=== PATIENT | male | born 1975 | race Caucasian/White ===

== ENCOUNTER 2022-04-24 17:21 | Observation (INO) | payer BC, SELFPAY ==
[2022-04-24] VITALS (9 sets, daily range): BP systolic 137–240; BP diastolic 68–149; PULSE 74–104; RESP 10–22; TEMP 36.7; O2SAT 90–95; BMI 40.7
--- NOTE | 2022-04-24 18:19 | XRR_ITS ---
PROCEDURE INFORMATION: Exam: XR Chest Exam date and time: 04/24/2022 6:27 PM Age: 47 years old Clinical indication: Other: HTN TECHNIQUE: Imaging protocol: Radiologic exam of the chest. Views: 1 view. COMPARISON: No relevant prior studies available. FINDINGS: Lungs: Unremarkable. No consolidation. Pleural spaces: Unremarkable. No pleural effusion. No pneumothorax. Heart/Mediastinum: Unremarkable. No cardiomegaly. Bones/joints: Unremarkable. XR/XR chest 1V portable [id number] IMPRESSION: No acute findings.
--- NOTE | 2022-04-24 18:22 | ECG_ITS ---
[facility] Test Date: 2022-04-24 Pat Name: Natanael Boswell Department: Room: Gender: Male Care Transition Coordinator: : 1975 Requested By: Shamir Hough Order Number: [id number] Sixto MD: Kwasi Palomo M.D. Measurements Intervals [place] Rate: 94 P: 60 ID: [id number] QRS: 20 QRSD: 99 T: 103 QT: 358 QTc: 449 Interpretive Statements SINUS RHYTHM POSSIBLE LEFT ATRIAL ENLARGEMENT [-0.1mV P-WAVE IN V1/V2] NONSPECIFIC ST & T-WAVE ABNORMALITY No previous ECG available for comparison Electronically Signed On 04-26-2022 7:44:06 PILLOW CLEANER by Kwasi Palomo M.D. [id number]
[2022-04-24 18:30] LABS: Basophils # 0.1 10^3/uL (0.0-0.1); Basophils % 0.5 %; Eosinophils # 0.1 10^3/uL (0.0-0.8); Eosinophils % 1.1 %; Hematocrit 52.4 % (42.0-52.0); Hemoglobin 17.7 g/dL (11.7-16.6); Lymphocytes # 1.9 10^3/uL (0.8-4.8); Lymphocytes % 17.9 %; Mean Corpuscular HGB Conc 33.8 g/dL (30.0-36.0); Mean Corpuscular Hemoglobin 29.8 pg (28.0-34.0); Mean Corpuscular Volume 88.2 fl (80-94); Mean Platelet Volume 12.1 fL (7.4-10.4); Monocytes # 0.8 10^3/uL (0.2-0.9); Monocytes % 7.4 %; Neutrophils # 7.69 10^3/uL (1.8-7.7); Neutrophils % 72.8 %; Nucleated Red Blood Cells % 0 %; Platelet Count 279 10^3/cmm (130-400); Red Blood Count 5.94 10^6/uL (4.1-5.3); Red Cell Distribution Width 12.2 % (12.1-15.1); White Blood Count 10.6 10^3/uL (4.0-10.0)
[2022-04-24] MEDS: amlodipine 10 mg Tablet PO (18:35)
[2022-04-24] MEDS: nitroglycerin 1 gm/inch oint Pkt 2 INCH TOPICAL (18:35)
[2022-04-24] MEDS: labetalol 5 mg/mL SDV 20mL 20 MG IVP ×2 (18:35→19:55)
[2022-04-24] MEDS: enalaprilat 1.25 mg/mL Inj IVP (18:35)
[2022-04-24 18:51] LABS: Troponin(5th) Baseline 10 ng/L (0-15)
[2022-04-24 19:01] LABS: Alanine Aminotransferase 46 U/L (0-41); Albumin Level 4.9 g/dL (3.5-5.2); Alkaline Phosphatase 76 U/L (40-130); Anion Gap 19.6 (5-19); Aspartate Amino Transferase 27 U/L (0-40); Blood Urea Nitrogen 16 mg/dL (6-20); Calcium 9.8 mg/dL (8.5-10.5); Carbon Dioxide 24 mmol/L (22-29); Chloride 98 mmol/L (98-107); Globulin 3.1 g/dL (1.3-4.6); Glomerular Filtration Rate 79.4 mL/min (90-130); Glucose 106 mg/dL (65-115); Magnesium 2.1 mg/dL (1.7-2.3); NT Pro B Type Natriuretic Pept 41 pg/mL (0-125); Osmolality Calculated 288 mOsm/kg (285-295); Potassium 3.6 mmol/L (3.5-5.1); Sodium 138 mmol/L (136-145); Thyroid Stimulating Hormone 4.05 uIU/mL (0.27-4.20); Total Bilirubin 0.6 mg/dL (0.15-1.2)
--- NOTE | 2022-04-24 19:12 | CTR_ITS ---
PROCEDURE INFORMATION: Exam: CT Head Without Contrast Exam date and time: 04/24/2022 7:17 PM Age: 47 years old Clinical indication: Numbness / parasthesia and other: HTN; Right; Additional info: Paresthesia right, HTN TECHNIQUE: Imaging protocol: Computed tomography of the head without contrast. Radiation optimization: All CT scans at this facility use at least one of these dose optimization techniques: automated exposure control; mA and/or kV adjustment per patient size (includes targeted exams where dose is matched to clinical indication); or iterative reconstruction. COMPARISON: No relevant prior studies available. RADIATION DOSE METRICS: Total DLP (mGy-cm): 1219.88 FINDINGS: Brain: Normal. No hemorrhage. Unremarkable white matter. No mass effect. Cerebral ventricles: No ventriculomegaly. Paranasal sinuses: Visualized sinuses are unremarkable. No fluid levels. Mastoid air cells: Visualized mastoid air cells are well aerated. Bones/joints: Unremarkable. No acute fracture. Soft tissues: Unremarkable. CT/CT head wo con* [id number] IMPRESSION: No acute intracranial abnormality.
[2022-04-24 20:42] LABS: Troponin 5 2HR 10.74 ng/L (0-15)
--- NOTE | 2022-04-24 20:46 | ED_ITS ---
HPI - General Adult General: Chief complaint: ER Hold Stated complaint: high bp, numbness on left side Time Seen by Provider: 04/24/22 18:10 Source: patient and family History of Present Illness: 47-year-old male without history of significant medical problems. He presents with some paresthesias to his left upper and lower extremity for the past couple of weeks. He has been on and off he denies headache. He has had some upper back discomfort but no chest discomfort. He felt like my blood pressure was high earlier today, and it was significantly e levated. He presents with a blood pressure in the 230 systolic range. Onset (ago): day(s) Location: back Radiation: non-radiation Severity: moderate Quality: other Associated symptoms: Deny chest pain, confusion, cough, dyspnea, fevers/chills, headache(s), nausea, rash, palpitations, short of breath or vomiting Review of Systems ENMT: Denies: throat pain Card: Denies: chest pain or palpitations Resp: Denies: dyspnea GI: Denies: nausea or vomiting Skin/Breast: Denies: rash Neuro: Denies: headache(s) or confusion PFSH ED PFSH: Medical History (Updated 04/26/22 @ 00:00 by BELLE Dior) No pertinent past medical history Surgical History (Updated 04/24/22 @ 22:30 by Jay Mondragon MD) No pertinent past surgical history Family History (Updated 04/24/22 @ 22:31 by Jay Mondragon MD) Father CAD (coronary artery disease) Hypertension Social History (Updated 04/24/22 @ 22:31 by Jay Mondragon MD) Smoking and tobacco status: never smoked Alcohol intake: current Alcohol intake frequency: holidays/special occasions only Physical Exam Const: COMMON NORMALS: alert GENERAL APPEARANCE: cooperative; not frail appearing NUTRITIONAL APPEARANCE: obese HENMT: COMMON NORMALS: normocephalic, atraumatic and Normal external nose present HEAD & SCALP: normocephalic and atraumatic FACE & SINUS: normal facial exam and face symmetric NOSE: Normal external nose present Eye: COMMON NORMALS: Equal, round and reactive pupils present and EOMs intact bilaterally PUPIL: Yes Equal, round and reactive pupils present Neck/C-Spine: GENERAL: Yes trachea midline Chest: CHEST: Yes Symmetrical chest wall rise Resp: COMMON NORMALS: normal respiratory effort, No use of accessory muscles and clear to auscultation bilaterally AUSCULTATION: clear to auscultation bilaterally Cardio: COMMON NORMALS: regular rate and regular rhythm RATE: regular rate RHYTHM: regular rhythm GI: COMMON NORMALS: Normal to inspection, nondistended, normoactive bowel sounds present and Soft to palpation PALPATION: Yes Soft to palpation Extremity: GENERAL: Yes edema (1+) Neuro: PENNY COMA SCALE: document GCS findings [place] coma scale eye opening: Spontaneous [place] coma scale verbal response: Orientated [place] coma scale motor response: Obey commands [place] coma scale total score: 15 SENSORIUM/ORIENTATION: Yes alert CRANIAL NERVES: Yes CN normal except as noted COORDINATION/BALANCE: [id number] test normal SPEECH: speech normal SENSORY EXAM: Yes extremities MOTOR EXAM: 5/5 motor strength present throughout and Pronator motor function not present COORDINATION: [id number] test normal Psych: COMMON NORMALS: mental status grossly normal and cooperative Skin: COMMON NORMALS: no rashes or lesions noted GENERAL SKIN EXAM: no rashes or lesions noted Course Vital Signs: Vital signs: Vital Signs Temperature 98.1 F 04/24/22 17:32 Pulse Rate 85 04/25/22 05:00 Respiratory Rate 15 04/25/22 05:00 Blood Pressure 134/76 04/25/22 08:59 Pulse Oximetry 96 04/25/22 04:30 Oxygen Delivery Me thod 04/24/22 20:59 [facility] - General Adult Medical Decision Making 47-year-old male with significant hypertension. Initially, he was given 20 mg of IV labetalol, 2 inches of nitroglycerin paste, 10 mg of amlodipine, and 1.25 mg of Vasotec IV his blood pressure currently is still 194/114, that is despite another 20 mg dose of IV labetalol. Decision was made at that point to start nicardipine drip IV. He will go to the [facility]. His hemoglobin is 17.7 with a white blood cell count of 10.6. BMP is not remarkable his first troponin is 10. TSH is 4. Chest x-ray and CT are negative. Creatinine is 1. Hospitalist has seen the patient in the ER. Lab Data 04/24/22 18:00 04/24/22 18:00 Radiology Impressions Chest X-Ray 04/24/22 18:19 IMPRESSION: No acute findings. Head CT 04/24/22 19:12 IMPRESSION: No acute intracranial abnormality. Laboratory Results WBC 10.6 10^3/uL (4.0-10.0) H 04/24/22 18:00 RBC 5.94 10^6/uL (4.1-5.3) H 04/24/22 18:00 Hgb 17.7 g/dL (11.7-16.6) H 04/24/22 18:00 Hct 52.4 % (42.0-52.0) H 04/24/22 18:00 MCV 88.2 fl (80-94) 04/24/22 18:00 MCH 29.8 pg (28.0-34.0) 04/24/22 18:00 MCHC 33.8 g/dL (30.0-36.0) 04/24/22 18:00 RDW 12.2 % (12.1-15.1) 04/24/22 18:00 Plt Count 279 10^3/cmm (130-400) 04/24/22 18:00 MPV 12.1 fL (7.4-10.4) H 04/24/22 18:00 Neut % (Auto) 72.8 % 04/24/22 18:00 Lymph % (Auto) 17.9 % 04/24/22 18:00 Ness % (Auto) 7.4 % 04/24/22 18:00 Eos % (Auto) 1.1 % 04/24/22 18:00 Baso % (Auto) 0.5 % 04/24/22 18:00 Neut # (Auto) 7.69 10^3/uL (1.8-7.7) 04/24/22 18:00 Lymph # (Auto) 1.9 10^3/uL (0.8-4.8) 04/24/22 18:00 Ness # (Auto) 0.8 10^3/uL (0.2-0.9) 04/24/22 18:00 Eos # (Auto) 0.1 10^3/uL (0.0-0.8) 04/24/22 18:00 Baso # (Auto) 0.1 10^3/uL (0.0-0.1) 04/24/22 18:00 Nucleated RBC % (auto) 0 % 04/24/22 18:00 Nucleated RBCs # 0.0 /100WBC 04/24/22 18:00 Sodium 138 mmol/L (136-145) 04/24/22 18:00 Potassium 3.6 mmol/L (3.5-5.1) 04/24/22 18:00 Chloride 98 mmol/L (98-107) 04/24/22 18:00 Carbon Dioxide 24 mmol/L (22-29) 04/24/22 18:00 Anion Gap 19.6 (5-19) H 04/24/22 18:00 BUN 16 mg/dL (6-20) 04/24/22 18:00 Creatinine 1.0 mg/dL (0.7-1.2) 04/24/22 18:00 GFR Calculation 79.4 mL/min (90-130) L 04/24/22 18:00 Glucose 106 mg/dL (65-115) 04/24/22 18:00 Estimat Average Glucose 114 04/24/22 18:00 Hemoglobin A1c 5.6 % (4.0-6.0) 04/24/22 18:00 Calculated Osmolality 288 mOsm/kg (285-295) 04/24/22 18:00 Calcium 9.8 mg/dL (8.5-10.5) 04/24/22 18:00 Magnesium 2.1 mg/dL (1.7-2.3) 04/24/22 19:43 Total Bilirubin 0.6 mg/dL (0.15-1.2) 04/24/22 18:00 AST 27 U/L (0-40) 04/24/22 18:00 ALT 46 U/L (0-41) H 04/24/22 18:00 Alkaline Phosphatase 76 U/L (40-130) 04/24/22 18:00 Troponin T Baseline 10 ng/L (0-15) 04/24/22 18:00 Troponin T 120 Minute 10.74 ng/L (0-15) 04/24/22 19:43 Delta Troponin T 0.74 ABS# (0-10) 04/24/22 19:43 NT-Pro-B Natriuret Pep 40 pg/mL (0-125) 04/24/22 19:43 Total Protein 8.0 g/dL (6.6-8.7) 04/24/22 18:00 Albumin 4.9 g/dL (3.5-5.2) 04/24/22 18:00 Globulin 3.1 g/dL (1.3-4.6) 04/24/22 18:00 Triglycerides 123 mg/dL (0-150) 04/24/22 19:43 Cholesterol 160 mg/dL (0-200) 04/24/22 19:43 LDL Cholesterol, Calc 102 mg/dL (50-129) 04/24/22 19:43 HDL Cholesterol 33 mg/dL (60-100) L 04/24/22 19:43 LDL/HDL Ratio 3.09 RATIO (0.00-3.22) 04/24/22 19: Cholesterol/HDL Ratio 4.85 mg/dL (1.0-5.00) 04/24/22 19:43 TSH 4.05 uIU/mL (0.27-4.20) 04/24/22 18:00 Urine Color Yellow (Yellow) 04/24/22 21:33 Urine Appearance Clear (CLEAR) 04/24/22 21:33 Urine pH 5 (5-7) 04/24/22 21:33 Ur Specific [place] 1.015 (1.005-1.030) 04/24/22 21:33 Urine Protein Neg (Negative) 04/24/22 21:33 Urine Glucose (UA) Norm (Normal) 04/24/22 21:33 Urine Ketones 2+ (Negative) H 04/24/22 21:33 Urine Blood Neg (Negative) 04/24/22 21:33 Urine Nitrate Negative (Negative) 04/24/22 21:33 Urine Bilirubin Neg (Negative) 04/24/22 21:33 Urine Urobilinogen Neg mg/dL (Negative) 04/24/22 21:33 Ur Leukocyte Esterase Negative (Negative) 04/24/22 21:33 Critical Care Time Critical Care Time: Critical Care Time: Yes Total Critical Care Time: 40 Attestation: This case had a high probability of a clinically significant, sudden, or life threatening deterioration of this patient's condition which required my full and direct attention, intervention and personal management. Time is independent of any procedures performed Discharge Plan Discharge Patient Disposition: Admitted As Inpatient Admit Provider: Jay Mondragon Clinical Impression: Hypertensive crisis Condition: Stable Discharge Diet: Cardiac Discharge Activity: Increase activity as tolerated Coding Level of Care Code ED Nascar Driver for Chg Fwd Exam Comprehensive
--- NOTE | 2022-04-24 20:55 | ECG_ITS ---
[facility] Test Date: 2022-04-24 Pat Name: Natanael Boswell Department: Room: Gender: Male Last Chalker: : 1975 Requested By: Shamir Hough Order Number: [id number] Sixto MD: Kwasi Palomo M.D. Measurements Intervals [place] Rate: 79 P: 54 SC: 169 QRS: 20 QRSD: 99 T: 133 QT: 382 QTc: 439 Interpretive Statements SINUS RHYTHM SEPTAL MYOCARDIAL INFARCTION , OF INDETERMINATE AGE [40+ ms Q WAVE IN V1/V2] Compared to ECG 04/24/2022 18:38:52 Myocardial infarct finding now present T-wave abnormality no longer present Electronically Signed On 04-26-2022 7:49:51 TIRE SERVICER by Kwasi Palomo M.D. [id number]
[2022-04-24 21:09] LABS: Troponin 5 2HR Delta 0.74 ABS# (0-10)
[2022-04-24] MEDS: nicardipine 20 MG/200 ML PREMIX 5 MG IV (21:28)
[2022-04-24 21:40] LABS: Add Urine Microscopic? NO; Charge for UA Resulting for Rev
[2022-04-24 21:54] LABS: Bilirubin Urine Neg (Negative); Blood Urine Neg (Negative); Glucose Urine UA Norm (Normal); Ketones Urine 2+ (Negative); Leukocyte Esterase Urine Negative (Negative); Nitrate Urine Negative (Negative); Protein Urine Neg (Negative); Specific Gravity, Urine 1.015 (1.005-1.030); Urine Appearance Clear (CLEAR); Urine Color Yellow (Yellow); Urobilinogen Urine Neg (Negative); pH Urine 5 (5-7)
--- NOTE | 2022-04-24 22:28 | PM.HP ---
Providers/Chief Complaint Chief Complaint: high bp, numbness on left side History of Present Illness Natanael Boswell is a 47 year old male with no significant past medical history, who presents [facility] for elevated blood pressure. Patient tells me that recently he has been having numbness and tingling of bilateral hands and feet, when he was at his chiropractor, he had his blood pressure check it was like in the 120s over 90s, since then he continued to have intermittent numbness and tingling of his hands feet, he tells that 1 time he was typing, when he had difficulty coordinating with his hands, no facial droop, no slurring of his words, no blurry vision, no focal weakness. So that he has been watching his blood pressure closely, tonight when he checked his blood pressure his systolic blood pressure was over 200, no chest pain, palpitations, lightheadedness, dizziness, no nausea, no vomiting, no shortness of breath here in the emergency room his blood pressures were as high as systolic greater than 240s, diastolic in the 140 she was given multiple IV blood pressure medications however his blood pressure still was not controlled so he was placed on a Cardene drip Review of Systems Const: Denies: fever(s), chills, fatigue or malaise Eyes: Denies: change in vision or blurry vision ENMT: Denies: epistaxis Card: Denies: chest pain or palpitations Resp: Denies: dyspnea, productive cough, non-productive cough or wheezing GI: Denies: abdominal pain, nausea, vomiting, hematemesis, diarrhea, hematochezia or melena : Denies: flank pain, difficulty urinating, dysuria or urinary frequency Musc: Denies: neck pain or back pain Skin/Breast: Denies: rash Neuro: Denies: headache(s), dizziness or vertigo Psych: Denies: anxiety Endo: Denies: polyuria or polydipsia Medications/Allergies Home Medications Medication Instructions Recorded Confirmed Last Taken Type No Known Home Medications 04/24/22 04/24/22 Unknown History Allergies Allergy/AdvReac Type Severity Reaction Status Date / Time Penicillins Allergy Unknown Unknown Verified 04/24/22 18:10 PFSH Acute PFSH: Medical History (Updated 04/24/22 @ 22:32 by Jay Mondragon MD) No pertinent past medical history Surgical History (Updated 04/24/22 @ 22:30 by Jay Mondragon MD) No pertinent past surgical history Family History (Updated 04/24/22 @ 22:31 by Jay Mondragon MD) Father CAD (coronary artery disease) Hypertension Social History (Updated 04/24/22 @ 22:31 by Jay Mondragon MD) Smoking and tobacco status: never smoked Alcohol intake: current Alcohol intake frequency: holidays/special occasions only Substance/Drug Use: never Vitals/I&O/Wt Last Vital Signs Temp 98.1 F 04/24/22 17:32 Pulse 85 04/24/22 22:00 Resp 18 04/24/22 22:00 BP 149/83 04/24/22 22:00 Pulse Ox 95 04/24/22 22:00 O2 Del Method 04/24/22 17:32 Weight last 48 hrs Weight 121.563 kg Physical Exam Const: COMMON NORMALS: no acute distress and patient oriented x3 HENMT: COMMON NORMALS: normocephalic HEAD & SCALP: normocephalic Eye: COMMON NORMALS: Equal, round and reactive pupils present and EOMs intact bilaterally Neck/C-Spine: COMMON NORMALS: no JVD Lymph: LYMPHATIC: no lymphadenopathy noted Resp: COMMON NORMALS: normal respiratory effort, No retractions, No use of accessory muscles and clear to auscultation bilaterally AUSCULTATION: clear to auscultation bilaterally Cardio: COMMON NORMALS: regular rate, regular rhythm, S1 normal heart sound present and S2 normal heart sound present RATE: regular rate RHYTHM: regular rhythm HEART SOUNDS: S1 normal heart sound present and S2 normal heart sound present GI: COMMON NORMALS: Normal to inspection, nondistended, normoactive bowel sounds present, Soft to palpation and non-tender Extremity: COMMON NORMALS: no pedal edema Neuro: COMMON NORMALS: patient oriented x3, CN's II-XII intact bilaterally and moves all extremities Psych: COMMON NORMALS: mental status grossly normal Data 04/24/22 18:00 04/24/22 18:00 A&P Assessment and plan (1) TIA (transient ischemic attack): (2) Hypertensive crisis: Plan Hypertensive crisis -Continue Cardene drip -Add on chlorthalidone 25 mg p.o. daily -We will add on additional p.o. blood pressure medication -Lipid profile, A1c, cardiac echo -Full code -Lovenox 30 prophylaxis TIA -Patient's symptomatology is highly suspicious for TIA -CT head no acute findings -Aspirin, statin, blood pressure control -Neurochecks, NIH stroke scale follow-up Attestations Medical Necessity Statement*: Patient requires hospitalization, outpatient with observation, for hypertensive crisis, TIA Coding Level of Care Code Acute Code for g Fwd Diagnoses TIA (transient ischemic attack) G45.9 Hypertensive crisis I16.9
[2022-04-24 23:14] LABS: Chol HDL Ratio 4.85 mg/dL (1.0-5.00); Cholesterol 160 mg/dL (0-200); HDL Cholesterol 33 mg/dL (60-100); LDL Cholesterol Calculated 102 mg/dL (50-129); LDL HDL Ratio 3.09 RATIO (0.00-3.22); Magnesium 2.1 mg/dL (1.7-2.3); NT Pro B Type Natriuretic Pept 40 pg/mL (0-125); Triglycerides 123 mg/dL (0-150)
[2022-04-24] MEDS: chlorthalidone 25 mg Tablet PO (23:33)
[2022-04-24] MEDS: atorvastatin 40 mg Tablet PO (23:33)
[2022-04-24] MEDS: enoxaparin 40 mg/0.4 mL Syringe SUBCUT (23:33)
[2022-04-25] VITALS (13 sets, daily range): BP systolic 105–155; BP diastolic 57–82; PULSE 70–85; RESP 11–24; O2SAT 84–99
[2022-04-25 00:14] LABS: Estmated Average Glucose 114; Hemoglobin A1C 5.6 % (4.0-6.0)
[2022-04-25] MEDS: nicardipine 20 MG/200 ML PREMIX 2.5 MG IV (01:23)
--- NOTE | 2022-04-25 06:00 | USCV_ITS ---
Elbert Natanael Age: 47 Gender: M : 1975 Exam Date: 04/25/2022 09:00 Ordering Phys: Jay Mondragon MD Technologist: Zachary Landers [place] [facility] [place]: tia BP: 138 / 76 HR: 87 Rhythm: Sinus Technical Quality: Adequate MEASUREMENTS (Male / Female) Normal Values 2D ECHO LV Diastolic Diameter PLAX 4.1 cm 4.2 - 5.9 / 3.9 - 5.3 cm LV Systolic Diameter PLAX 2.6 cm IVS Diastolic Thickness 1.4 cm 0.6 - 1.0 / 0.6 - 0.9 cm IVS Systolic Thickness 1.3 cm LVPW Diastolic Thickness 1.3 cm 0.6 - 1.0 / 0.6 - 0.9 cm LVPW Systolic Thickness 1.7 cm LVOT Diameter 2.1 cm LV Ejection Fraction 2D Teich 66.5 % LV Ejection Fraction MOD 2C 70.5 % LV Ejection Fraction 2C AL 71.3 % LA Diameter 4.0 cm IVC Diameter 1.5 cm M-MODE Aortic Annulus Diameter 3.5 cm LA Ao Ratio MM 1.2 MV E Point Septal Separation 0.7 cm DOPPLER AV Peak Velocity 226.0 cm/s LVOT Peak Velocity 119.0 cm/s AV Area Cont Eq vti 1.9 cm squared AV Area Cont Eq pk 1.8 cm squared MV Area PHT 5.0 cm squared Mitral E to A Ratio 0.8 MV E' Velocity 39.0 cm/s Mitral E to MV E' Ratio 10.9 Mitral E to LV E' Lateral Ratio 8.8 Mitral E to LV E' Septal Ratio 14.6 TR Peak Velocity 156.3 cm/s TR Peak Gradient 9.8 mmHg TV Peak E Velocity 149.0 cm/s Right Atrial Pressure 3.0 mmHg Pulmonary Artery Systolic Pressu 12.8 mmHg FINDINGS Left Ventricle Left ventricle is normal in size. LV systolic function is normal with EF of 55 to 60%. No regional wall motion abnormalities are seen. Grade 1 diastolic dysfunction Right Ventricle Normal in size and function Right Atrium Normal in size Left Atrium Normal in size Mitral Valve Structurally normal mitral valve. Aortic Valve Structurally normal aortic valve. Mild aortic stenosis with mean gradient of 10 mmHg and aortic valve area of 2 cm squared. Tricuspid Valve Mild tricuspid regurgitation. RVSP is normal. Pulmonic Valve Not well-visualized. Pericardium Normal Aorta Normal in size IVC Appears to be normal CONCLUSIONS LV systolic function is normal with EF 55 to 60%. Grade 1 diastolic dysfunction Mild aortic stenosis with mean gradient of 10 mmHg Mild tricuspid regurgitation. No comparison studies are available Kwasi Palomo MD (Electronically Signed) Final Date: 26 April 2022 05:46 S
[2022-04-25 07:22] LABS: Troponin 5 6HR 10.23 ng/L (0-15)
[2022-04-25 07:32] LABS: Anion Gap 18.8 (5-19); Blood Urea Nitrogen 15 mg/dL (6-20); Calcium 8.9 mg/dL (8.5-10.5); Carbon Dioxide 22 mmol/L (22-29); Chloride 97 mmol/L (98-107); Glomerular Filtration Rate 89.7 mL/min (90-130); Glucose 116 mg/dL (65-115); Osmolality Calculated 280 mOsm/kg (285-295); Potassium 3.8 mmol/L (3.5-5.1); Sodium 134 mmol/L (136-145)
[2022-04-25 07:38] LABS: Troponin 5 6HR Delta 0.23 ng/L (0-12)
--- NOTE | 2022-04-25 07:56 | USCV_ITS ---
Natanael Boswell Age: 47 Gender: M : 1975 Exam Date: 04/25/2022 09:21 Ordering Phys: Dieter De Oliveira MD Technologist: Zachary Landers Exam Location: [facility] [place] Indication: tia Risk Factors: Previous Vascular Surgery: Right Brachial BP: / Left Brachial BP: / Right Left Velocity (cm/s) Spectral Plaque Velocity (cm/s) Spectral Plaque Syst/Diast Broadening Syst/Diast Broadening 120.20/18.70 Prox CCA 101.00/ 17.10 90.40/ 13.20 Mid CCA 105.60/ 15.50 86.00/ 17.60 Distal CCA 90.10 / 20.20 73.50/ 12.80 Prox ICA 110.30/ 21.80 64.10/ 12.00 Mid ICA 135.20/ 31.10 70.10/ 16.20 Distal ICA 90.10 / 20.20 143.30 ECA 127.40 0.61 ICA/CCA 1.28 Antegrade Vertebral Antegrade / cm/s 48.50/ 15.40 cm/s Tri Subclavian Tri 175.6 84.90 0 CONCLUSIONS Right ICA stenosis <50%. Mild atheromatous plaque right carotid bulb/ICA. Left ICA stenosis <50%. Mild atheromatous plaque left carotid bulb/ICA. Normal antegrade Doppler flow noted in the right vertebral artery. Normal antegrade Doppler flow noted in the left vertebral artery. Ortiz Gutierrez MD (Electronically Signed) Final Date: 25 April 2022 11:30 S
[2022-04-25] MEDS: pantoprazole DR 40 mg Tablet PO (09:43)
[2022-04-25] MEDS: metoprolol tartrate 50 mg Tablet PO (09:43)
[2022-04-25] MEDS: amlodipine 5 mg Tablet PO (11:15)
--- NOTE | 2022-04-25 12:38 | P.DS_ITS ---
Discharge Providers Date of Admission: 04/24/22 22:28 Date of Discharge: April 25, 2022 Attending Provider at Admission: Jay Mondragon MD Attending Provider at Discharge: Dieter De Oliveira MD Diagnoses at Discharge Discharge Diagnosis (1) TIA (transient ischemic attack): Status: Acute (2) Hypertensive crisis: Status: Acute Reason for Visit Reason for Visit: high bp, numbness on left side Hospital Course Hospital Course Natanael is a 47-year-old white male who presented to the hospital with numbness and tingling on his left side. He had no facial droop, difficulty speaking, or other deficit. He did not have weakness. Blood pressure was markedly elevated and there was concern for hypertensive crisis. He was given multiple medications with blood pressure was still elevated so Cardene drip was started. Following this, neurologic symptoms went away. CT head was negative. EKG demonstrated normal sinus rhythm. He was initiated on metoprolol 50 mg twice daily and Norvasc 5 mg daily with improvement of his blood pressure. Low-dose aspirin, and statin was initiated. With this he was able to ambulate, felt good, had no recurrent numbness or tingling and it was thought he could be discharged home with follow-up with his primary care provider within 4 to 7 days. He was told to return for any recurrence of significant symptoms. An opportunity for him and his to ask questions was given, and he agreed with the plan. Carotid duplex demonstrated no significant plaque. Echocardiogram was pending, preliminary appear to be normal. Physical Exam Narrative: General exam is no apparent distress Neck is supple Cardiovascular regular in rhythm without murmur Lungs clear Abdomen is soft, positive bowel sounds Extremities no cyanosis clubbing or edema, cap refill brisk Skin no rash Neuro no obvious focal deficits. Discharge Data Studies Completed and Pending Completed Studies During Hospitalization Category Date Time Status CT head wo con* [id number] Stat Cat Scan 04/24/22 19:12 Completed XR chest 1V portable [id number] Stat Exams 04/24/22 18:19 Completed CV carotid duplex BI* [id number] Routine Ultrasound 04/25/22 07:56 Completed Pending at discharge Category Date Time Status CV. echo complete* [id number] Routine Ultrasound 04/25/22 06:00 Taken Radiology Impressions Chest X-Ray 04/24/22 18:19 IMPRESSION: No acute findings. Head CT 04/24/22 19:12 IMPRESSION: No acute intracranial abnormality. Laboratory Results WBC 10.6 10^3/uL (4.0-10.0) H 04/24/22 18:00 RBC 5.94 10^6/uL (4.1-5.3) H 04/24/22 18:00 Hgb 17.7 g/dL (11.7-16.6) H 04/24/22 18:00 Hct 52.4 % (42.0-52.0) H 04/24/22 18:00 MCV 88.2 fl (80-94) 04/24/22 18:00 MCH 29.8 pg (28.0-34.0) 04/24/22 18:00 MCHC 33.8 g/dL (30.0-36.0) 04/24/22 18:00 RDW 12.2 % (12.1-15.1) 04/24/22 18:00 Plt Count 279 10^3/cmm (130-400) 04/24/22 18:00 MPV 12.1 fL (7.4-10.4) H 04/24/22 18:00 Neut % (Auto) 72.8 % 04/24/22 18:00 Lymph % (Auto) 17.9 % 04/24/22 18:00 [place] % (Auto) 7.4 % 04/24/22 18:00 Eos % (Auto) 1.1 % 04/24/22 18:00 Baso % (Auto) 0.5 % 04/24/22 18:00 Neut # (Auto) 7.69 10^3/uL (1.8-7.7) 04/24/22 18:00 Lymph # (Auto) 1.9 10^3/uL (0.8-4.8) 04/24/22 18:00 [place] # (Auto) 0.8 10^3/uL (0.2-0.9) 04/24/22 18:00 Eos # (Auto) 0.1 10^3/uL (0.0-0.8) 04/24/22 18:00 Baso # (Auto) 0.1 10^3/uL (0.0-0.1) 04/24/22 18:00 Nucleated RBC % (auto) 0 % 04/24/22 18:00 Nucleated RBCs # 0.0 /100WBC 04/24/22 18:00 Sodium 134 mmol/L (136-145) L 04/25/22 06:56 Potassium 3.8 mmol/L (3.5-5.1) 04/25/22 06:56 Chloride 97 mmol/L (98-107) L 04/25/22 06:56 Carbon Dioxide 22 mmol/L (22-29) 04/25/22 06:56 Anion Gap 18.8 (5-19) 04/25/22 06:56 BUN 15 mg/dL (6-20) 04/25/22 06:56 Creatinine 0.9 mg/dL (0.7-1.2) 04/25/22 06:56 GFR Calculation 89.7 mL/min (90-130) L 04/25/22 06:56 Glucose 116 mg/dL (65-115) H 04/25/22 06:56 Estimat Average Glucose 114 04/24/22 18:00 Hemoglobin A1c 5.6 % (4.0-6.0) 04/24/22 18:00 Calculated Osmolality 280 mOsm/kg (285-295) L 04/25/22 06:56 Calcium 8.9 mg/dL (8.5-10.5) 04/25/22 06:56 Magnesium 2.1 mg/dL (1.7-2.3) 04/24/22 19:43 Total Bilirubin 0.6 mg/dL (0.15-1.2) 04/24/22 18:00 AST 27 U/L (0-40) 04/24/22 18:00 ALT 46 U/L (0-41) H 04/24/22 18:00 Alkaline Phosphatase 76 U/L (40-130) 04/24/22 18:00 Troponin T Baseline 10 ng/L (0-15) 04/24/22 18:00 Troponin T 120 Minute 10.74 ng/L (0-15) 04/24/22 19:43 Delta Troponin T 0.74 ABS# (0-10) 04/24/22 19:43 Troponin T Hi Sens 6Hr 10.23 ng/L (0-15) 04/25/22 06:56 Troponin T Hi Sens 6Hr Delta 0.23 ng/L (0-12) 04/25/22 06:56 NT-Pro-B Natriuret Pep 40 pg/mL (0-125) 04/24/22 19:43 Total Protein 8.0 g/dL (6.6-8.7) 04/24/22 18:00 Albumin 4.9 g/dL (3.5-5.2) 04/24/22 18:00 Globulin 3.1 g/dL (1.3-4.6) 04/24/22 18:00 Triglycerides 123 mg/dL (0-150) 04/24/22 19:43 Cholesterol 160 mg/dL (0-200) 04/24/22 19:43 LDL Cholesterol, Calc 102 mg/dL (50-129) 04/24/22 19:43 HDL Cholesterol 33 mg/dL (60-100) L 04/24/22 19: LDL/HDL Ratio 3.09 RATIO (0.00-3.22) 04/24/22 19: Cholesterol/HDL Ratio 4.85 mg/dL (1.0-5.00) 04/24/22 19:43 TSH 4.05 uIU/mL (0.27-4.20) 04/24/22 18:00 Urine Color Yellow (Yellow) 04/24/22 21:33 Urine Appearance Clear (CLEAR) 04/24/22 21:33 Urine pH 5 (5-7) 04/24/22 21:33 Ur Specific [place] 1.015 (1.005-1.030) 04/24/22 21:33 Urine Protein Neg (Negative) 04/24/22 21:33 Urine Glucose (UA) Norm (Normal) 04/24/22 21:33 Urine Ketones 2+ (Negative) H 04/24/22 21:33 Urine Blood Neg (Negative) 04/24/22 21:33 Urine Nitrate Negative (Negative) 04/24/22 21:33 Urine Bilirubin Neg (Negative) 04/24/22 21:33 Urine Urobilinogen Neg mg/dL (Negative) 04/24/22 21:33 Ur Leukocyte Esterase Negative (Negative) 04/24/22 21:33 Vitals Last Vital Signs Temp 98.1 F 04/24/22 17:32 Pulse 85 04/25/22 05:00 Resp 15 04/25/22 05:00 BP 134/76 04/25/22 08:59 Pulse Ox 96 04/25/22 04:30 O2 Del Method 04/24/22 20:59 Discharge Plan Discharge Patient Disposition: Home Condition: Stable Prescriptions: New aspirin 81 mg Tablet,Delayed Release (Dr/Ec) 81 mg PO DAILY Qty: 30 0RF atorvastatin 40 mg Tablet 40 mg PO BEDTIME Qty: 30 0RF metoprolol tartrate 50 mg Tablet 50 mg PO BID@0900,2100 Qty: 60 0RF amlodipine [Norvasc] 5 mg tablet 5 mg PO DAILY Qty: 30 0RF No Action No Known Home Medications Discharge Orders: Discharge Order (Routine); Ordered 04/25/22 Ordered By: Dieter De Oliveira Referrals: Garrett Sibley DO [Physician] - 4-7 days (Tuesday 05/02 at 930 AM) Discharge Diet: Cardiac Discharge Activity: Increase activity as tolerated Patient Instructions: Opioid Safety Activity Restrictions/Additional Instructions: Take all medicine as prescribed Return for any stroke symptoms Follow-up with Dr. Brandt on appointment as indicated Patient's Health Concerns: Tingling, left side, significant hypertension Assessment: Hypertensive crisis Plan of Treatment: Blood pressure medication initiated Aspirin, statin Follow-up with primary Goals: Improving control blood pressure, no return of numbness and tingling on left. Discharge Attestations Time Spent in Discharge Care*: greater than 30 min Quality Metrics Clinical Quality Measures [ No reported AMI, CVA or VTE this stay] Coding Level of Care Code Acute Chg FW DC note Diagnoses TIA (transient ischemic attack) G45.9 Hypertensive crisis I16.9
--- NOTE | 2022-04-25 12:38 | DCPLANNER ---
Addendum entered by Karo Gaston 05/06/22 13:05: Patient had a follow up appointment scheduled - appointment was rescheduled Original Note: industrial engineering manager was asked to get patient established with a primary care physician. industrial engineering manager called [facility], spoke with Jackelin, gave clinic patients information. A follow up appointment was scheduled for Monday, May 02, 2022 at 9:[address] Sibley. industrial engineering manager informed patient of the scheduled appointment.
== END 2022-04-25 12:52 | disposition home or self-care (01) ==
LOC: ER 21:51 → ER IP 04-25 00:55
PROVIDERS: Admitting Provider Family Medicine; Emergency Provider Emergency Medicine; Visit Provider Internal Medicine
DX: G45.9 Transient cerebral ischemic attack, unspecified (principal); I16.9 Hypertensive crisis, unspecified
CPT/HCPCS: 36415; 70450; 71045; 80048; 80053; 80061; 81003; 83036; 83735; 83880; 84443; 84484; 85025; 93005; 93306; 93880; 96365; 96372; 96375; 96376; 99285; G0378; J1650; J3490

== ENCOUNTER 2022-04-27 07:55 | Emergency (ER) | payer BC, SELFPAY ==
[2022-04-27] VITALS (12 sets, daily range): BP systolic 148–185; BP diastolic 90–110; PULSE 75–91; RESP 17–18; TEMP 36.7; O2SAT 94–99
--- NOTE | 2022-04-27 08:12 | PC.NURSE ---
PT did not take his blood pressure medication this AM
--- NOTE | 2022-04-27 08:13 | W.ED.ANXIETY ---
HPI - Anxiety General: Chief Complaint: Anxiety Stated Complaint: High blood pressure, unsteady Time Seen by Provider: 04/27/22 07:57 Source: patient Mode of arrival: ambulatory History of Present Illness: 47-year-old male presents emergency room complaining of anxiety and elevated blood pressure. He was admitted for accelerated hypertension over the weekend was discharged 2 days ago. He was discharged home metoprolol and amlodipine. He states morning his blood pressure is elevated when he was anxious but he did not take any of his blood pressure medications. Carotid Doppler and CT of the head and neck done at the previous admission were unremarkable. When asked patient why he did not take his blood pressure medicines this morning he was really unable to tell me why that he did not cite any particular side effects or problems he has been having with the medications. He did relate that he had some left-sided numbness and tingling previously that was associated with his markedly elevated blood pressure previously. Manual blood blood pressure this morning was 165/98. His blood pressure by the automated cuff was slightly higher. MD complaint: anxiety and other (Evaded blood pressure) Symptoms: extremity numbness/tingling Severity: mild Place: home Relieving factors: nothing Exacerbating factors: nothing Associated symptoms: Deny anorexia, chest pain, chills, confusion, diaphoresis, fever(s), headache(s), malaise, nausea, palpitations, short of breath, syncope, vomiting or weakness Review of Systems Const: Denies: fever(s), chills, fatigue, malaise or diaphoresis ENMT: Denies: throat pain, ear or mastoid pain, nasal discharge or nasal congestion Card: Denies: chest pain, palpitations or syncope Resp: Denies: dyspnea, productive cough or non-productive cough GI: Denies: abdominal pain, nausea or vomiting : Denies: flank pain, dysuria, urinary frequency or urinary urgency Musc: Denies: neck pain or back pain Skin/Breast: Denies: rash or pruritus Neuro: Denies: headache(s) or confusion PFS ED PFSH: Medical History (Updated 04/27/22 @ 14:17 by Uday Cabral DO) No pertinent past medical history TIA (transient ischemic attack) Surgical History No pertinent past surgical history Family History Father CAD (coronary artery disease) Hypertension Social History Smoking and tobacco status: never smoked Alcohol intake: current Alcohol intake frequency: holidays/special occasions only Physical Exam Const: GENERAL APPEARANCE: cooperative and comfortable ORIENTATION/CONSCIOUSNESS: Yes awake, Yes oriented to person, Yes oriented to place and Yes oriented to time HENMT: COMMON NORMALS: normocephalic, atraumatic and hearing grossly normal bilaterally HEAD & SCALP: normocephalic and atraumatic Eye: COMMON NORMALS: Equal, round and reactive pupils present, EOMs intact bilaterally, conjunctivae normal and no scleral icterus CONJUNCTIVA: Yes conjunctivae normal PUPIL: Yes Equal, round and reactive pupils present Neck/C-Spine: COMMON NORMALS: full ROM, no lymphadenopathy, supple and no JVD Resp: COMMON NORMALS: normal respiratory effort, No retractions, No use of accessory muscles and clear to auscultation bilaterally AUSCULTATION: clear to auscultation bilaterally Cardio: COMMON NORMALS: no JVD, regular rate, regular rhythm and No murmurs present (Cardio) RATE: regular rate RHYTHM: regular rhythm Extremity: COMMON NORMALS: normal to inspection, capillary refill normal, no clubbing, cyanosis or edema, no calf tenderness and no pedal edema Neuro: SENSORIUM/ORIENTATION: Yes oriented to person, Yes oriented to place and Yes oriented to time OTHER: No focal neurologic deficits Skin: COMMON NORMALS: no rashes or lesions noted GENERAL SKIN EXAM: no rashes or lesions noted Course Vital Signs: Vital signs: Vital Signs Temperature 98.1 F 04/27/22 08:00 Pulse Rate 81 04/27/22 12:30 Respiratory Rate 17 04/27/22 08:11 Blood Pressure 158/90 04/27/22 13:30 Pulse Oximetry 98 04/27/22 13:00 Oxygen Delivery Me thod 04/27/22 11:30 MDM - Anxiety Medical Decision Making Patient monitored for several hours in the emergency room blood pressure remained resistant he was extremely anxious. Stroke scoring is 0. He previously had vascular studies done which were also negative. I think this is more combination of his blood pressure and anxiety. We will discharge the patient home I did review the case with on-call neurology they concurred with our plan. We will increase his Toprol to Toprol-XL increase his Norvasc to 10 daily and add lisinopril 10 follow-up with his primary care doctor within the next week to reevaluate blood pressure Medical Records I reviewed the patient's medical records. Lab Data I reviewed the patient's lab results. 04/27/22 Unknown 04/27/22 Unknown Laboratory Results WBC 10.4 10^3/uL (4.0-10.0) H 04/27/22 Unknown RBC 5.65 10^6/uL (4.1-5.3) H 04/27/22 Unknown Hgb 16.8 g/dL (11.7-16.6) H 04/27/22 Unknown Hct 51.3 % (42.0-52.0) 04/27/22 Unknown MCV 90.8 fl (80-94) 04/27/22 Unknown MCH 29.7 pg (28.0-34.0) 04/27/22 Unknown MCHC 32.7 g/dL (30.0-36.0) 04/27/22 Unknown RDW 12.2 % (12.1-15.1) 04/27/22 Unknown Plt Count 252 10^3/cmm (130-400) 04/27/22 Unknown MPV 11.9 fL (7.4-10.4) H 04/27/22 Unknown Neut % (Auto) 76.0 % 04/27/22 Unknown Lymph % (Auto) 16.1 % 04/27/22 Unknown [place] % (Auto) 6.1 % 04/27/22 Unknown Eos % (Auto) 1.1 % 04/27/22 Unknown Baso % (Auto) 0.4 % 04/27/22 Unknown Neut # (Auto) 7.93 10^3/uL (1.8-7.7) H 04/27/22 Unknown Lymph # (Auto) 1.7 10^3/uL (0.8-4.8) 04/27/22 Unknown [place] # (Auto) 0.6 10^3/uL (0.2-0.9) 04/27/22 Unknown Eos # (Auto) 0.1 10^3/uL (0.0-0.8) 04/27/22 Unknown Baso # (Auto) 0.0 10^3/uL (0.0-0.1) 04/27/22 Unknown Nucleated RBC % (auto) 0 % 04/27/22 Unknown Nucleated RBCs # 0.0 /100WBC 04/27/22 Unknown Sodium 136 mmol/L (136-145) 04/27/22 Unknown Potassium 3.7 mmol/L (3.5-5.1) 04/27/22 Unknown Chloride 98 mmol/L (98-107) 04/27/22 Unknown Carbon Dioxide 24 mmol/L (22-29) 04/27/22 Unknown Anion Gap 17.7 (5-19) 04/27/22 Unknown BUN 19 mg/dL (6-20) 04/27/22 Unknown Creatinine 1.1 mg/dL (0.7-1.2) 04/27/22 Unknown GFR Calculation 71.1 mL/min (90-130) L 04/27/22 Unknown Glucose 107 mg/dL (65-115) 04/27/22 Unknown Calculated Osmolality 285 mOsm/kg (285-295) 04/27/22 Unknown Calcium 9.4 mg/dL (8.5-10.5) 04/27/22 Unknown Discharge Plan Discharge Patient Disposition: Home Clinical Impression: Hypertension, Acute anxiety Condition: Stable Prescriptions: New Toprol XL 50 mg tablet extended release 24 hr 50 mg PO DAILY Qty: 30 0RF lisinopril 10 mg tablet 10 mg PO DAILY Qty: 30 0RF Changed Norvasc 5 mg tablet 10 mg PO QAM Qty: 60 0RF Discontinued metoprolol tartrate 50 mg Tablet 50 mg PO BID@0900,2100 Qty: 60 0RF No Action atorvastatin 40 mg Tablet 40 mg PO BEDTIME Qty: 30 0RF multivitamin Tablet 1 tab PO DAILY aspirin 81 mg tablet,delayed release (DR/EC) 81 mg PO QAM Discharge Orders: Discharge ED (Routine); Ordered 04/27/22 Ordered By: Uday Cabral Discharge Diet: Usual diet Discharge Activity: Increase activity as tolerated Patient Instructions: Opioid Safety, Pain Management Activity Restrictions/Additional Instructions: You are seen today for elevated blood pressure. Your blood pressure did improve. It is very important to take your blood pressure medications daily at the same time. Particularly with the metoprolol if a dose is missed it can cause rebound hypertension. We did make the following recommendations or changes for your blood pressure medication. Change from metoprolol to tartrate to metoprolol succinate which is an extended release 50 mg once daily. Add lisinopril 10 mg daily and increase your amlodipine to 10 mg daily. Should recheck your blood pressure with your primary care doctor within the next week. Coding Level of Care Code ED Sensor Specialist for Rodolfo Fwd Exam Comprehensive
[2022-04-27] MEDS: labetalol 5 mg/mL SDV 20mL 10 MG IVP (08:35)
[2022-04-27] MEDS: amlodipine 10 mg Tablet PO (08:35)
[2022-04-27] MEDS: metoprolol tartrate 25 mg Tablet PO (08:35)
[2022-04-27] MEDS: LORazepam 2 mg Tablet PO (08:39)
[2022-04-27] MEDS: hyDRALAzine 20 mg/mL INJ 1 mL 10 MG IVP ×2 (10:12→12:32)
--- NOTE | 2022-04-27 10:16 | ECG_ITS ---
[facility] Test Date: 2022-04-27 Pat Name: Natanael Boswell Department: Room: Gender: Male Neuroscience Director Na: : 1975 Requested By: Uday Newton Order Number: [id number] Sixto MD: Kwasi Palomo M.D. Measurements Intervals [place] Rate: 75 P: 18 [place]: 171 QRS: 15 QRSD: 106 T: 164 QT: 379 QTc: 423 Interpretive Statements SINUS RHYTHM POSSIBLE LEFT ATRIAL ENLARGEMENT [-0.1mV P-WAVE IN V1/V2] ST ELEVATION, PROBABLY EARLY REPOLARIZATION [ST ELEVATION WITH NORMALLY INFLECTED T-WAVE] MODERATE T-WAVE ABNORMALITY, CONSIDER LATERAL ISCHEMIA [-0.1+ mV T-WAVE IN I/aVL/V5/V6] Compared to ECG 04/24/2022 20:55:22 ST (T wave) deviation now present Early repolarization now present T-wave abnormality now present Possible ischemia now present Myocardial infarct finding no longer present Electronically Signed On 04-27-2022 21:45:21 STUDENT UNION CONSULTANT by Kwasi Palomo M.D. [id number]
[2022-04-27 10:36] LABS: Basophils % 0.4 %; Eosinophils # 0.1 10^3/uL (0.0-0.8); Eosinophils % 1.1 %; Hematocrit 51.3 % (42.0-52.0); Hemoglobin 16.8 g/dL (11.7-16.6); Lymphocytes # 1.7 10^3/uL (0.8-4.8); Lymphocytes % 16.1 %; Mean Corpuscular HGB Conc 32.7 g/dL (30.0-36.0); Mean Corpuscular Hemoglobin 29.7 pg (28.0-34.0); Mean Corpuscular Volume 90.8 fl (80-94); Mean Platelet Volume 11.9 fL (7.4-10.4); Monocytes # 0.6 10^3/uL (0.2-0.9); Monocytes % 6.1 %; Neutrophils # 7.93 10^3/uL (1.8-7.7); Nucleated Red Blood Cells % 0 %; Platelet Count 252 10^3/cmm (130-400); Red Blood Count 5.65 10^6/uL (4.1-5.3); Red Cell Distribution Width 12.2 % (12.1-15.1); White Blood Count 10.4 10^3/uL (4.0-10.0)
[2022-04-27 10:55] LABS: Anion Gap 17.7 (5-19); Blood Urea Nitrogen 19 mg/dL (6-20); Calcium 9.4 mg/dL (8.5-10.5); Carbon Dioxide 24 mmol/L (22-29); Chloride 98 mmol/L (98-107); Glomerular Filtration Rate 71.1 mL/min (90-130); Glucose 107 mg/dL (65-115); Osmolality Calculated 285 mOsm/kg (285-295); Potassium 3.7 mmol/L (3.5-5.1); Sodium 136 mmol/L (136-145)
[2022-04-27] MEDS: enalaprilat 1.25 mg/mL Inj IVP (13:21)
== END 2022-04-27 18:01 | disposition home or self-care (01) ==
PROVIDERS: Emergency Provider Family Medicine
DX: F41.9 Anxiety disorder, unspecified (principal); I10 Essential (primary) hypertension; Z79.82 Long term (current) use of aspirin; Z86.73 Personal history of transient ischemic attack (TIA), and cerebral infarction without residual deficits
CPT/HCPCS: 80048; 85025; 93005; 96374; 96375; 96376; 99284; J0360; J3490

== ENCOUNTER 2022-07-25 10:18 | Outpatient (CLI) | payer BC, SELFPAY ==
[2022-07-25 11:34] LABS: Basophils # 0.1 10^3/uL (0.0-0.1); Basophils % 0.4 %; Eosinophils # 0.1 10^3/uL (0.0-0.8); Eosinophils % 0.8 %; Hematocrit 44.7 % (42.0-52.0); Hemoglobin 14.5 g/dL (11.7-16.6); Lymphocytes # 0.4 10^3/uL (0.8-4.8); Lymphocytes % 3.3 %; Mean Corpuscular HGB Conc 32.4 g/dL (30.0-36.0); Mean Corpuscular Hemoglobin 31.5 pg (28.0-34.0); Mean Corpuscular Volume 97.2 fl (80-94); Monocytes # 0.8 10^3/uL (0.2-0.9); Neutrophils % 89.1 %; Nucleated Red Blood Cells % 0 %; Platelet Count 204 10^3/cmm (130-400); Red Cell Distribution Width 14.6 % (12.1-15.1); White Blood Count 12.6 10^3/uL (4.0-10.0)
[2022-07-25 11:52] LABS: Alanine Aminotransferase 24 U/L (0-41); Albumin Level 4.2 g/dL (3.5-5.2); Alkaline Phosphatase 48 U/L (40-130); Anion Gap 12.7 (5-19); Aspartate Amino Transferase 13 U/L (0-40); Blood Urea Nitrogen 14 mg/dL (6-20); Carbon Dioxide 27 mmol/L (22-29); Chloride 103 mmol/L (98-107); Globulin 2.4 g/dL (1.3-4.6); Glomerular Filtration Rate 79.4 mL/min (90-130); Glucose 110 mg/dL (65-115); Osmolality Calculated 289 mOsm/kg (285-295); Potassium 3.7 mmol/L (3.5-5.1); Sodium 139 mmol/L (136-145); Total Bilirubin 0.7 mg/dL (0.15-1.2); Total Protein 6.6 g/dL (6.6-8.7)
== END 2022-07-25 10:19 | disposition home or self-care (01) ==
PROVIDERS: PCP Family Medicine; Visit Provider Internal Medicine
DX: C71.9 Malignant neoplasm of brain, unspecified (principal)
CPT/HCPCS: 36415; 80053; 85025

== ENCOUNTER 2022-08-01 10:59 | Outpatient (CLI) | payer BC, SELFPAY ==
[2022-08-01 11:30] LABS: Basophils % 0.3 %; Eosinophils # 0.1 10^3/uL (0.0-0.8); Eosinophils % 0.6 %; Hematocrit 41.9 % (42.0-52.0); Hemoglobin 13.9 g/dL (11.7-16.6); Lymphocytes # 0.5 10^3/uL (0.8-4.8); Lymphocytes % 4.2 %; Mean Corpuscular HGB Conc 33.2 g/dL (30.0-36.0); Mean Corpuscular Hemoglobin 31.2 pg (28.0-34.0); Mean Corpuscular Volume 94.2 fl (80-94); Mean Platelet Volume 10.5 fL (7.4-10.4); Monocytes # 0.6 10^3/uL (0.2-0.9); Monocytes % 5.4 %; Neutrophils # 9.68 10^3/uL (1.8-7.7); Neutrophils % 89.2 %; Nucleated Red Blood Cells % 0 %; Platelet Count 229 10^3/cmm (130-400); Red Blood Count 4.45 10^6/uL (4.1-5.3); Red Cell Distribution Width 13.7 % (12.1-15.1); White Blood Count 10.8 10^3/uL (4.0-10.0)
[2022-08-01 11:54] LABS: Alanine Aminotransferase 22 U/L (0-41); Albumin Level 4.1 g/dL (3.5-5.2); Alkaline Phosphatase 54 U/L (40-130); Anion Gap 16.5 (5-19); Aspartate Amino Transferase 20 U/L (0-40); Blood Urea Nitrogen 15 mg/dL (6-20); Calcium 9.5 mg/dL (8.5-10.5); Carbon Dioxide 25 mmol/L (22-29); Chloride 98 mmol/L (98-107); Globulin 3.1 g/dL (1.3-4.6); Glomerular Filtration Rate 89.7 mL/min (90-130); Glucose 166 mg/dL (65-115); Osmolality Calculated 287 mOsm/kg (285-295); Potassium 3.5 mmol/L (3.5-5.1); Sodium 136 mmol/L (136-145); Total Bilirubin 0.5 mg/dL (0.15-1.2); Total Protein 7.2 g/dL (6.6-8.7)
== END 2022-08-01 11:00 | disposition home or self-care (01) ==
LOC: LAB 11:05
PROVIDERS: PCP Family Medicine; Visit Provider Internal Medicine
DX: C71.9 Malignant neoplasm of brain, unspecified (principal)
CPT/HCPCS: 36415; 80053; 85025

== ENCOUNTER 2022-08-08 10:37 | Outpatient (CLI) | payer BC, SELFPAY ==
[2022-08-08 11:18] LABS: Basophils % 0.4 %; Eosinophils # 0.1 10^3/uL (0.0-0.8); Eosinophils % 0.5 %; Hematocrit 40.6 % (42.0-52.0); Hemoglobin 13.2 g/dL (11.7-16.6); Lymphocytes # 0.5 10^3/uL (0.8-4.8); Lymphocytes % 5.4 %; Mean Corpuscular HGB Conc 32.5 g/dL (30.0-36.0); Mean Corpuscular Hemoglobin 31.5 pg (28.0-34.0); Mean Corpuscular Volume 96.9 fl (80-94); Mean Platelet Volume 10.6 fL (7.4-10.4); Monocytes # 0.6 10^3/uL (0.2-0.9); Monocytes % 5.9 %; Neutrophils # 8.29 10^3/uL (1.8-7.7); Neutrophils % 87.1 %; Nucleated Red Blood Cells % 0 %; Platelet Count 216 10^3/cmm (130-400); Red Blood Count 4.19 10^6/uL (4.1-5.3); Red Cell Distribution Width 13.5 % (12.1-15.1); White Blood Count 9.5 10^3/uL (4.0-10.0)
[2022-08-08 11:36] LABS: Alanine Aminotransferase 20 U/L (0-41); Albumin Level 4.1 g/dL (3.5-5.2); Alkaline Phosphatase 47 U/L (40-130); Anion Gap 12.5 (5-19); Aspartate Amino Transferase 15 U/L (0-40); Blood Urea Nitrogen 22 mg/dL (6-20); Calcium 9.1 mg/dL (8.5-10.5); Carbon Dioxide 28 mmol/L (22-29); Chloride 103 mmol/L (98-107); Globulin 2.4 g/dL (1.3-4.6); Glomerular Filtration Rate 89.7 mL/min (90-130); Glucose 144 mg/dL (65-115); Osmolality Calculated 296 mOsm/kg (285-295); Potassium 3.5 mmol/L (3.5-5.1); Sodium 140 mmol/L (136-145); Total Bilirubin 0.4 mg/dL (0.15-1.2); Total Protein 6.5 g/dL (6.6-8.7)
== END 2022-08-08 10:38 | disposition home or self-care (01) ==
LOC: LAB 10:47
PROVIDERS: PCP Family Medicine; Visit Provider Internal Medicine
DX: C71.9 Malignant neoplasm of brain, unspecified (principal)
CPT/HCPCS: 36415; 80053; 85025

== ENCOUNTER 2022-08-16 11:24 | Outpatient (CLI) | payer BC, SELFPAY ==
[2022-08-16 12:24] LABS: Basophils % 0.2 %; Eosinophils % 0.2 %; Hematocrit 43.5 % (42.0-52.0); Hemoglobin 14.1 g/dL (11.7-16.6); Lymphocytes # 0.5 10^3/uL (0.8-4.8); Lymphocytes % 3.6 %; Mean Corpuscular HGB Conc 32.4 g/dL (30.0-36.0); Mean Corpuscular Hemoglobin 31.1 pg (28.0-34.0); Mean Platelet Volume 10.9 fL (7.4-10.4); Monocytes # 0.6 10^3/uL (0.2-0.9); Monocytes % 4.2 %; Neutrophils # 12.07 10^3/uL (1.8-7.7); Neutrophils % 91.5 %; Nucleated Red Blood Cells % 0 %; Platelet Count 181 10^3/cmm (130-400); Red Blood Count 4.53 10^6/uL (4.1-5.3); Red Cell Distribution Width 13.1 % (12.1-15.1); White Blood Count 13.2 10^3/uL (4.0-10.0)
[2022-08-16 12:48] LABS: Alanine Aminotransferase 19 U/L (0-41); Albumin Level 4.3 g/dL (3.5-5.2); Alkaline Phosphatase 45 U/L (40-130); Anion Gap 15.7 (5-19); Aspartate Amino Transferase 12 U/L (0-40); Blood Urea Nitrogen 19 mg/dL (6-20); Calcium 9.1 mg/dL (8.5-10.5); Carbon Dioxide 27 mmol/L (22-29); Chloride 104 mmol/L (98-107); Globulin 2.5 g/dL (1.3-4.6); Glomerular Filtration Rate 102.7 mL/min (90-130); Glucose 112 mg/dL (65-115); Osmolality Calculated 299 mOsm/kg (285-295); Potassium 3.7 mmol/L (3.5-5.1); Sodium 143 mmol/L (136-145); Total Bilirubin 0.7 mg/dL (0.15-1.2); Total Protein 6.8 g/dL (6.6-8.7)
== END 2022-08-16 11:25 | disposition home or self-care (01) ==
PROVIDERS: PCP Family Medicine; Visit Provider Specialist
DX: C71.9 Malignant neoplasm of brain, unspecified (principal)
CPT/HCPCS: 36415; 80053; 85025

== ENCOUNTER 2022-08-22 11:34 | Outpatient (CLI) | payer BC, SELFPAY ==
[2022-08-22 13:20] LABS: Basophils % 0.3 %; Eosinophils % 0.1 %; Hematocrit 43.6 % (42.0-52.0); Hemoglobin 14.2 g/dL (11.7-16.6); Lymphocytes # 0.4 10^3/uL (0.8-4.8); Lymphocytes % 3.8 %; Mean Corpuscular HGB Conc 32.6 g/dL (30.0-36.0); Mean Corpuscular Hemoglobin 31.6 pg (28.0-34.0); Mean Corpuscular Volume 97.1 fl (80-94); Mean Platelet Volume 11.5 fL (7.4-10.4); Monocytes # 0.4 10^3/uL (0.2-0.9); Monocytes % 3.3 %; Neutrophils # 10.02 10^3/uL (1.8-7.7); Nucleated Red Blood Cells % 0 %; Platelet Count 174 10^3/cmm (130-400); Red Blood Count 4.49 10^6/uL (4.1-5.3); Red Cell Distribution Width 12.5 % (12.1-15.1); White Blood Count 10.9 10^3/uL (4.0-10.0)
[2022-08-22 13:42] LABS: Alanine Aminotransferase 17 U/L (0-41); Albumin Level 4.4 g/dL (3.5-5.2); Alkaline Phosphatase 46 U/L (40-130); Anion Gap 15.5 (5-19); Aspartate Amino Transferase 16 U/L (0-40); Blood Urea Nitrogen 22 mg/dL (6-20); Calcium 8.9 mg/dL (8.5-10.5); Carbon Dioxide 27 mmol/L (22-29); Chloride 105 mmol/L (98-107); Globulin 2.5 g/dL (1.3-4.6); Glomerular Filtration Rate 119.9 mL/min (90-130); Glucose 111 mg/dL (65-115); Osmolality Calculated 302 mOsm/kg (285-295); Potassium 3.5 mmol/L (3.5-5.1); Sodium 144 mmol/L (136-145); Total Bilirubin 0.7 mg/dL (0.15-1.2); Total Protein 6.9 g/dL (6.6-8.7)
== END 2022-08-22 11:35 | disposition home or self-care (01) ==
LOC: LAB 11:41
PROVIDERS: PCP Family Medicine; Visit Provider Specialist
DX: C71.9 Malignant neoplasm of brain, unspecified (principal)
CPT/HCPCS: 36415; 80053; 85025

== ENCOUNTER 2022-09-08 14:01 | Outpatient (RCR) | payer BC, SELFPAY | END 2022-09-30 23:59 | disposition home or self-care (01) | LOC: SOT 14:01 | PROVIDERS: Visit Provider Family Medicine | DX: C71.9 Malignant neoplasm of brain, unspecified (principal); R53.1 Weakness; F41.1 Generalized anxiety disorder; F41.0 Panic disorder [episodic paroxysmal anxiety]; I69.90 Unspecified sequelae of unspecified cerebrovascular disease; I10 Essential (primary) hypertension | CPT/HCPCS: 97165 ==

== ENCOUNTER → 2023-06-21 11:58 | Outpatient (BNVA) | payer BC, SELFPAY | PROVIDERS: PCP Family Medicine; Visit Provider Nurse Practitioner Family | DX: R53.83 Other fatigue (principal); R59.1 Generalized enlarged lymph nodes | CPT/HCPCS: 87400; 87426 ==

== ENCOUNTER 2023-07-18 07:22 | Emergency (ER) | payer BC, SELFPAY ==
[2023-07-18 07:30] VITALS: BP 134/71; PULSE 66; RESP 12; TEMP 36.6; O2SAT 95
--- NOTE | 2023-07-18 07:31 | XR_ITS ---
WS: [id number] Exam: XR chest 1V portable [id number] Date/Time of Exam: 07/18/2023 7:40 AM Reason For Exam: weakness Comparison 04/24/2022. Lungs are hyperinflated and clear. Normal cardiomediastinal silhouette. No pleural effusions. [place] liosis of the T-spine. IMPRESSION: 1. Pulmonary hyperinflation. No acute finding.
--- NOTE | 2023-07-18 07:49 | ECG_ITS ---
[facility] Test Date: 2023-07-18 Pat Name: Natanael Boswell Department: Room: Gender: Male Bank Boss: : 1975 Requested By: Cameron Mart Order Number: [id number] Sixto MD: Kwasi Palomo M.D. Measurements Intervals [place] Rate: 66 P: 62 MT: 161 QRS: 35 QRSD: 92 T: 54 QT: 414 QTc: 435 Interpretive Statements SINUS RHYTHM POSSIBLE LEFT ATRIAL ENLARGEMENT [-0.1mV P-WAVE IN V1/V2] Compared to ECG 04/27/2022 11:04:29 ST (T wave) deviation no longer present Early repolarization no longer present T-wave abnormality no longer present Possible ischemia no longer present Electronically Signed On 07-18-2023 12:28:20 CDT by Kwasi Palomo M.D. [id number]
[2023-07-18 08:14] LABS: Basophils % 0.5 %; Eosinophils % 0.9 %; Hematocrit 31.5 % (37-53); Lymphocytes # 0.2 10^3/uL (0.8-4.8); Lymphocytes % 7.7 %; Mean Corpuscular HGB Conc 33.3 g/dL (30-55); Mean Corpuscular Hemoglobin 35.1 pg (27-33); Mean Corpuscular Volume 105.4 fl (82-101); Mean Platelet Volume 10.4 fL (7.4-10.4); Monocytes # 0.3 10^3/uL (0.2-0.9); Monocytes % 14.5 %; Neutrophils # 1.68 10^3/uL (1.8-7.7); Neutrophils % 76.4 %; Nucleated Red Blood Cells % 0 %; Platelet Count 123 10^3/cmm (157-399); Red Blood Count 2.99 10^6/uL (3.85-5.65); Red Cell Distribution Width 13.7 % (12.1-15.1)
--- NOTE | 2023-07-18 08:14 | ED_ITS ---
HPI - Weakness 2 General: Chief complaint: Weakness Stated complaint: Gen Weakness Time Seen by Provider: 07/18/23 07:26 History of Present Illness: Patient presents to the ER after complaints of waking up this morning and having more left-sided weakness and tremor than normal. Patient does have a history of brain cancer is currently undergoing treatment for he is doing chemotherapy and wearing a hat device at send waves into the tumor. Patient says normally weak on his left side and has a mild tremor but when he woke up this morning he was weak enough that he is afraid he cannot walk and has more of a tremor. He has been on chemotherapy for around 7 cycles. He done radiation before that. Glioblastoma multiform a and B is followed by a physician in [place]. Review of Systems 2 General: Reports: 10 or more systems reviewed and unremarkable except in HPI and below PFSH ED 2 PFSH: Medical History Hypertension TIA (transient ischemic attack) Surgical History No pertinent past surgical history Family History Father CAD (coronary artery disease) Hypertension Social History Smoking and tobacco/nicotine status: never used tobacco/nicotine Second hand smoke exposure: No Alcohol intake: current Alcohol intake frequency: holidays/special occasions only Substance/Drug Use: never Adopted: No Caregiver/support person: No Lives independently: Yes Household members: spouse Housing: House service: No Do you think of yourself as: Straight/Heterosexual Current gender identity: Male Physical Exam 2 Const: COMMON NORMALS: no acute distress, average body habitus, patient oriented x3, no limitations, healthy appearing, alert and well nourished HENMT: COMMON NORMALS: normocephalic, atraumatic, hearing grossly normal bilaterally, external ears normal, Normal external nose present, moist oral mucous membranes and oropharynx normal HEAD & SCALP: normocephalic and atraumatic NOSE: Normal external nose present EXTERNAL EAR: Yes external ears normal Neck/C-Spine: COMMON NORMALS: full ROM, no lymphadenopathy, supple, no meningeal signs, no JVD and Thyroid normal THYROID: Thyroid normal Chest: COMMONS NORMALS: normal inspection of the chest and normal palpation of entire chest wall Resp: COMMON NORMALS: normal respiratory effort, No retractions, No use of accessory muscles and clear to auscultation bilaterally AUSCULTATION: clear to auscultation bilaterally Cardio: COMMON NORMALS: no JVD, regular rate, regular rhythm, S1 normal heart sound present, S2 normal heart sound present, No gallops present (Cardio), No clicks present (Cardio), No murmurs present (Cardio) and No rub (Cardio) R ATE: regular rate RHYTHM: regular rhythm HEART SOUNDS: S1 normal heart sound present and S2 normal heart sound present GI: COMMON NORMALS: Normal to inspection, nondistended, normoactive bowel sounds present, Soft to palpation, non-tender, No hepatosplenomegaly present and no masses PALPATION: Yes Soft to palpation and Yes No hepatosplenomegaly present Neuro: COMMON NORMALS: patient oriented x3 SENSORIUM/ORIENTATION: Yes alert MENINGEAL SIGNS: Yes no meningeal signs Course 2 Vital Signs: Vital signs: Vital Signs Temperature 97.9 F 07/18/23 12:36 Pulse Rate 60 07/18/23 12:36 Respiratory Rate 12 07/18/23 12:36 Blood Pressure 125/75 07/18/23 12:36 Pulse Oximetry 100 07/18/23 12:36 Oxygen Delivery Me thod Room Air 07/18/23 11:17 MDM - Weakness Medical Decision Making Patient lab work done which was essentially unremarkable. Patient's mildly pancytopenic secondary to his chemotherapy otherwise was benign. Patient did collect his oncologist and discussed with him these left-sided tremors left- sided weakness is that he is comfortable and steroid. Patient be discharged from the ER. Lab Data 07/18/23 08:06 07/18/23 08:06 Laboratory Results WBC 2.20 10^3/uL (3.29-11.43) L 07/18/23 08:06 RBC 2.99 10^6/uL (3.85-5.65) L 07/18/23 08:06 Hgb 10.50 g/dL (11.27-16.99) L 07/18/23 08:06 Hct 31.5 % (37-53) L 07/18/23 08:06 MCV 105.4 fl (82-101) H 07/18/23 08:06 MCH 35.1 pg (27-33) H 07/18/23 08:06 MCHC 33.3 g/dL (30-55) 07/18/23 08:06 RDW 13.7 % (12.1-15.1) 07/18/23 08:06 Plt Count 123 10^3/cmm (157-399) L 07/18/23 08:06 MPV 10.4 fL (7.4-10.4) 07/18/23 08:06 Neut % (Auto) 76.4 % 07/18/23 08:06 Lymph % (Auto) 7.7 % 07/18/23 08:06 [place] % (Auto) 14.5 % 07/18/23 08:06 Eos % (Auto) 0.9 % 07/18/23 08:06 Baso % (Auto) 0.5 % 07/18/23 08:06 Neut # (Auto) 1.68 10^3/uL (1.8-7.7) L 07/18/23 08:06 Lymph # (Auto) 0.2 10^3/uL (0.8-4.8) L 07/18/23 08:06 [place] # (Auto) 0.3 10^3/uL (0.2-0.9) 07/18/23 08:06 Eos # (Auto) 0.0 10^3/uL (0.0-0.8) 07/18/23 08:06 Baso # (Auto) 0.0 10^3/uL (0.0-0.1) 07/18/23 08:06 Nucleated RBC % (auto) 0 % 07/18/23 08:06 Nucleated RBCs # 0.0 /100WBC 07/18/23 08:06 Sodium 143 mmol/L (136-145) 07/18/23 08:06 Potassium 3.8 mmol/L (3.5-5.1) 07/18/23 08:06 Chloride 106 mmol/L (98-107) 07/18/23 08:06 Carbon Dioxide 24 mmol/L (22-29) 07/18/23 08:06 Anion Gap 16.8 (5-19) 07/18/23 08:06 BUN 20 mg/dL (6-20) 07/18/23 08:06 Creatinine 1.0 mg/dL (0.7-1.2) 07/18/23 08:06 GFR Calculation 79.1 mL/min (90-130) L 07/18/23 08:06 Glucose 138 mg/dL (65-115) H 07/18/23 08:06 Calculated Osmolality 301 mOsm/kg (285-295) H 07/18/23 08:06 Calcium 9.2 mg/dL (8.5-10.5) 07/18/23 08:06 Total Bilirubin 0.5 mg/dL (0.15-1.2) 07/18/23 08:06 AST 14 U/L (0-40) 07/18/23 08:06 ALT 10 U/L (0-41) 07/18/23 08:06 Alkaline Phosphatase 41 U/L (40-130) 07/18/23 08:06 Total Protein 6.3 g/dL (6.6-8.7) L 07/18/23 08:06 Albumin 4.1 g/dL (3.5-5.2) 07/18/23 08:06 Globulin 2.2 g/dL (1.3-4.6) 07/18/23 08:06 Urine Color Yellow (Yellow) 07/18/23 09:10 Urine Appearance Clear (CLEAR) 07/18/23 09:10 Urine pH 5 (5-7) 07/18/23 09:10 Ur Specific [place] 1.020 (1.005-1.030) 07/18/23 09:10 Urine Protein Neg (Negative) 07/18/23 09:10 Urine Glucose (UA) Norm (Normal) 07/18/23 09:10 Urine Ketones 1+ (Negative) H 07/18/23 09:10 Urine Blood Neg (Negative) 07/18/23 09:10 Urine Nitrate Negative (Negative) 07/18/23 09:10 Urine Bilirubin Neg (Negative) 07/18/23 09:10 Urine Urobilinogen Neg mg/dL (Negative) 07/18/23 09:10 Ur Leukocyte Esterase Negative (Negative) 07/18/23 09:10 Urine Opiates Screen Negative ng/mL (Negative) 07/18/23 09:10 Ur Barbiturates Screen Negative ng/mL (Negative) 07/18/23 09:10 Ur Phencyclidine Scrn Negative ng/mL (Negative) 07/18/23 09:10 Ur Amphetamines Screen Negative ng/mL (Negative) 07/18/23 09:10 U Benzodiazepines Scrn Negative ng/mL (Negative) 07/18/23 09:10 Urine Cocaine Screen Negative ng/mL (Negative) 07/18/23 09:10 U Marijuana (THC) Screen Positive ng/mL (Negative) H 07/18/23 09:10 All radiology interpretation(s) finalized by discharge Discharge Plan Discharge Patient Disposition: Home Clinical Impression: Left-sided weakness, Coarse tremors Condition: Stable Prescriptions: No Action pantoprazole 40 mg tablet,delayed release (DR/EC) 40 mg PO BID levetiracetam [Keppra] 500 mg tablet 500 mg PO BID Qty: 60 0RF multivitamin Tablet 1 tab PO QAM sulfamethoxazole-trimethoprim 800-160 mg tablet 1 tab PO .[id number] memantine 5 mg tablet 5 mg PO BID metoprolol succinate 50 mg tablet extended release 24 hr 50 mg PO QAM lisinopril 20 mg tablet 20 mg PO QPM amlodipine 10 mg tablet 10 mg PO QAM Discharge Orders: Discharge ED (Routine); Ordered 07/18/23 Ordered By: Cameron Mart Referrals: Garrett Sibley DO [Primary Care Provider] - 1 week Patient Instructions: Tremors (ED), Weakness (Generalized) Activity Restrictions/Additional Instructions: Your evaluation in ER did not show any acute cause of your left-sided weakness and tremors. I suggest following up with your oncologist as this may be related to your glioblastoma multiforme or treatment. Coding Level of Care Code ED [employer] for [employer]
[2023-07-18 08:25] VITALS: BP 134/71; PULSE 74; O2SAT 99
[2023-07-18 08:30] LABS: Alanine Aminotransferase 10 U/L (0-41); Albumin Level 4.1 g/dL (3.5-5.2); Alkaline Phosphatase 41 U/L (40-130); Anion Gap 16.8 (5-19); Aspartate Amino Transferase 14 U/L (0-40); Blood Urea Nitrogen 20 mg/dL (6-20); Calcium 9.2 mg/dL (8.5-10.5); Carbon Dioxide 24 mmol/L (22-29); Chloride 106 mmol/L (98-107); Globulin 2.2 g/dL (1.3-4.6); Glomerular Filtration Rate 79.1 mL/min (90-130); Glucose 138 mg/dL (65-115); Osmolality Calculated 301 mOsm/kg (285-295); Potassium 3.8 mmol/L (3.5-5.1); Sodium 143 mmol/L (136-145); Total Bilirubin 0.5 mg/dL (0.15-1.2); Total Protein 6.3 g/dL (6.6-8.7)
[2023-07-18 09:12] VITALS: BP 118/75; PULSE 64; O2SAT 99
[2023-07-18 09:17] LABS: Add Urine Microscopic? NO; Charge for UA Resulting for Rev
[2023-07-18 09:23] LABS: Bilirubin Urine Neg (Negative); Blood Urine Neg (Negative); Glucose Urine UA Norm (Normal); Ketones Urine 1+ (Negative); Leukocyte Esterase Urine Negative (Negative); Nitrate Urine Negative (Negative); Protein Urine Neg (Negative); Urine Appearance Clear (CLEAR); Urine Color Yellow (Yellow); Urobilinogen Urine Neg (Negative); pH Urine 5 (5-7)
[2023-07-18 09:30] LABS: Amphetamines Screen Urine Negative (Negative); Barbiturates Screen Urine Negative (Negative); Benzodiazepines Screen Urine Negative (Negative); Cocaine Screen Urine Negative (Negative); Opiate Screen Urine Negative (Negative); PCP Screen Urine Negative (Negative); THC Screen Urine Positive (Negative)
[2023-07-18 11:17] VITALS: BP 125/75; PULSE 60; O2SAT 100
[2023-07-18 12:36] VITALS: BP 125/75; PULSE 60; RESP 12; TEMP 36.6; O2SAT 100
== END 2023-07-18 12:38 | disposition home or self-care (01) ==
PROVIDERS: Emergency Provider Emergency Medicine; PCP Family Medicine
DX: R53.1 Weakness (principal); G25.2 Other specified forms of tremor; I10 Essential (primary) hypertension; Z86.73 Personal history of transient ischemic attack (TIA), and cerebral infarction without residual deficits
CPT/HCPCS: 71045; 80053; 80306; 81003; 85025; 93005; 99285

== ENCOUNTER 2024-04-11 14:15 | Outpatient (CLI) | payer BC, SELFPAY ==
--- NOTE | 2024-04-11 14:21 | XRR_ITS ---
PROCEDURE INFORMATION: Exam: XR Chest Exam date and time: 04/11/2024 2:25 PM Age: 49 years old Clinical indication: Patient HX: Cough while eating, concerned about possible aspiration, HX of CVA. Best possible images due to patient condition. HX of gliboglastoma; Additional info: Dysphagia, CVA, and now acute cough w/ short of breath TECHNIQUE: Imaging protocol: Radiologic exam of the chest. Views: 2 views. COMPARISON: CR XR chest 1V portable [id number] 07/18/2023 7:41 AM FINDINGS: Lungs: No discrete lung markings are visualized of the [id number]-right apex. No focal consolidation. Pleural spaces: Unremarkable. No pleural effusion. No pneumothorax. Heart/Mediastinum: Unremarkable. No cardiomegaly. Vasculature: Mild calcification of the thoracic aorta. Bones/joints: Unremarkable. Other findings: Limited evaluation of the lateral chest radiograph secondary to superimposed arm. XR/XR chest 2V* [id number] IMPRESSION: No discrete lung markings are visualized of the [id number]-right apex which may be secondary to positioning versus small bilateral pneumothoraces. If clinical concern consider cross-sectional imaging.
== END 2024-04-11 14:16 | disposition home or self-care (01) ==
LOC: RAD 14:20
PROVIDERS: PCP Family Medicine; Visit Provider Emergency Medicine
DX: J98.4 Other disorders of lung (principal); I69.391 Dysphagia following cerebral infarction; I70.0 Atherosclerosis of aorta
CPT/HCPCS: 71046